=== PATIENT | male | born 1995 | race Caucasian/White ===

== ENCOUNTER 2024-02-14 01:34 | Emergency (ER) | payer OTHER, SELFPAY ==
[2024-02-14 01:32] VITALS: BP 152/92; PULSE 98; RESP 16; TEMP 36.3; O2SAT 100
[2024-02-14 01:47] LABS: Basophils Absolute Auto 0.1 K/mm3 (0.0-0.1); Basophils Percent Auto 1.1 % (0.2-1.2); Eosinophils Absolute Auto 0.2 K/mm3 (0-0.3); Eosinophils Percent Auto 3.6 % (0-4.4); Hematocrit 47.8 % (42.0-52.0); Hemoglobin 15.8 g/dL (14.0-18.0); Immature Granulocyte Absolute 0.01 K/mm3 (0.00-0.031); Immature Granulocyte Percent A 0.2 % (0-0.5); Lymphocytes Absolute Auto 2.15 K/mm3 (0.9-3.2); Lymphocytes Percent Auto 33.4 % (18.3-44.2); Mean Corpuscular HGB Conc 33.1 g/dl (32-36); Mean Corpuscular Hemoglobin 30.3 pg (26-34); Mean Corpuscular Volume 91.6 fl (80-100); Mean Platelet Volume 10.8 fl (7.4-10.4); Monocytes Absolute Auto 0.6 K/mm3 (0.1-0.6); Monocytes Percent Auto 9.2 % (2.6-8.5); Neutrophils Absolute Auto 3.4 K/mm3 (1.3-6.7); Neutrophils Percent Auto 52.5 % (45.5-73.1); Platelet Count Result 207 k/mm3 (150-375); Red Blood Count 5.22 M/mm3 (4.6-6.20); White Blood Count 6.4 K/mm3 (4.5-10.0)
--- NOTE | 2024-02-14 01:54 | PC.NURSE ---
EDP and charge account authorizer consulted about [facility] assessment.
[2024-02-14 01:58] LABS: Alanine Aminotransferase 38 U/L (6-50); Albumin Level 4.4 g/dL (3.5-5.1); Alkaline Phosphatase 109 U/L (38-126); Anion Gap 8 mmol/L (8-16); Aspartate Amino Transferase 32 U/L (17-59); Bilirubin,Total 0.4 mg/dL (0.2-1.3); Blood Urea Nitrogen 11 mg/dL (9-20); Calcium 8.5 mg/dL (8.4-10.2); Carbon Dioxide 27 mmol/L (22-30); Chloride 110 mmol/L (98-107); Estimated Glomerular Filt Rate > 60; Ethanol 236 mg/dL (<10); Glucose 88 mg/dL (65-110); Sodium 145 mmol/L (137-145)
[2024-02-14 03:18] LABS: Bacteria Urine None Seen /hpf; Non Pathogenic Casts 0-2; RBC Urine 0-2 /hpf (0-2); Squamous Epithelial Cell Urine None Seen /hpf (Few); WBC Urine 0-5 /hpf (0-3)
[2024-02-14 03:52] LABS: Appearance Urine Clear (Clear); Color Urine Yellow (Yellow); Glucose Urine UA Negative (Negative); Protein Urine Negative (Negative); pH Urine 5.5 (5.0-9.0)
[2024-02-14 03:53] LABS: Bilirubin Urine Negative (Negative); Blood Urine Negative (Negative); Ketones Urine Negative (Negative); Leukocyte Esterase Ur Negative LEU/UL (Negative); Nitrate Urine Negative (Negative); Urobilinogen Urine 0.2 mg/dL (<2.0)
[2024-02-14 03:55] LABS: Amphetamine Screen Urine Negative (Negative); Barbiturate Screen Urine Negative (Negative); Benzodiazepines Screen Urine Negative (Negative); Cannabinoid Screen Urine Negative (Negative); Cocaine Screen Urine Negative (Negative); Methadone Screen Urine Negative (Negative); Opiate Screen Urine Negative (Negative); Phencyclidine Screen Urine Negative (Negative)
--- NOTE | 2024-02-14 04:34 | ED.GENADULT ---
HPI - General Adult General Chief complaint: Psychiatric Symptoms <Vinicisu Mayers MD - Last Filed: 02/14/24 06:11> Stated complaint: si <Vinicius Mayers MD - Last Filed: 02/14/24 06:11> Time Seen by Provider: 02/14/24 02:24 <Vinicius Mayers MD - Last Filed: 02/14/24 06:11> History of Present Illness HPI narrative: Patient is a 29-year-old male who presents to the emergency department this morning due to alcohol intoxication and suicidal ideations. Patient admits that he does have a drinking problem and drinks almost daily. He also admits that he only becomes suicidal when he is drinking. He states that he understands had alcohol is a depressant and believes that it is the trigger for his suicidal thoughts and has been trying to cut down but has not been very successful. He currently denies any homicidal thoughts. Patient admits that he has seen a psychiatrist for that these thoughts. When asked how much he drank today, patient states a large amount of hard liquor. Patient does appear intoxicated. The remainder of history of present illness and review of systems is negative unless stated otherwise in HPI. <Vinicius Mayers MD - Last Filed: 02/14/24 06:11> Related Data Allergies/adverse reactions: Allergies Allergy/AdvReac Type Severity Reaction Status Date / Time promethazine [From Phenergan] Allergy Other Verified 02/14/24 01:39 <Vinicius Mayers MD - Last Filed: 02/14/24 06:11> Review of Systems Review of Systems: All systems are reviewed and are negative unless stated otherwise in the HPI. <Vinicius Mayers MD - Last Filed: 02/14/24 06:11> PMFSH Social History Social History: Social History Substance use type: does not use <Vinicius Mayers MD - Last Filed: 02/14/24 06:11> Comments Patient admits to a history of alcohol abuse drinking almost daily, denies any significant past medical or surgical history and denies any illicit drug use. <Vinicius Mayers MD - Last Filed: 02/14/24 06:11> Exam Narrative: General: Alert, awake, afebrile, intoxicated. HEENT: PERRL, no rhinorrhea, no post nasal drip, oropharynx clear. Neck: Trachea midline, no JVD, no lymphadenopathy. Cardiovascular: Regular rate and rhythm, no murmurs, rubs or gallops, no peripheral edema. Respiratory: Clear to auscultation bilaterally, no tachypnea, no wheezing, no rhonchi, no rubs, no respiratory distress. Abdomen: Soft, nontender, nondistended, no rebound, no guarding, no peritoneal signs. Musculoskeletal: No joint swelling or deformity, normal muscle tone. Skin: No rashes or petechia, no signs of infection. Psychiatric: Intoxicated, otherwise cooperative and following commands. Neurological: Alert and oriented to person, place, and time. Follows all commands. No focal deficits, speech is clear and fluent. <Vinicius Mayers MD - Last Filed: 02/14/24 06:11> Course Vital Signs Vital signs: Vital Signs Temperature 97.3 F L 02/14/24 01:32 Pulse Rate 98 02/14/24 01:32 Respiratory Rate 16 02/14/24 01:32 Blood Pressure 152/92 H 02/14/24 01:32 Pulse Oximetry 100 02/14/24 01:32 Oxygen Delivery Room Air 02/14/24 01:32 Temperature 97.5 F L 02/14/24 11:16 Pulse Rate 72 02/14/24 11:16 Respiratory Rate 17 02/14/24 11:16 Blood Pressure 154/94 H 02/14/24 11:16 Pulse Oximetry 98 02/14/24 11:16 Oxygen Delivery Room Air 02/14/24 01:32 <Vinicius Mayers MD - Last Filed: 02/14/24 06:11> Vital Signs Temperature 97.3 F L 02/14/24 01:32 Pulse Rate 98 02/14/24 01:32 Respiratory Rate 16 02/14/24 01:32 Blood Pressure 152/92 H 02/14/24 01:32 Pulse Oximetry 100 02/14/24 01:32 Oxygen Delivery Room Air 02/14/24 01:32 Temperature 97.5 F L 02/14/24 11:16 Pulse Rate 72 02/14/24 11:16 Respiratory Rate 17 02/14/24 11:16 Blood Pressure 154/94 H 02/14/24 11:16
[2024-02-14 05:09] LABS: Add Urine Microscopic? YES
[2024-02-14 06:08] LABS: Ethanol 141 mg/dL (<10)
[2024-02-14 07:25] VITALS: BP 141/99; PULSE 70; RESP 18; O2SAT 98
--- NOTE | 2024-02-14 07:41 | PC.NURSE ---
Precautionary breakfast tray ordered
[2024-02-14 08:58] LABS: Ethanol 75 mg/dL (<10)
[2024-02-14 10:15] LABS: SARS-CoV-2 RNA PCR Negative (Negative)
--- NOTE | 2024-02-14 10:58 | PC.NURSE ---
Crisis reps at bedside evaluating patient
--- NOTE | 2024-02-14 11:04 | PC.NURSE ---
Crisis representatives assessed patient and set up safety plan for d/c, made MD aware.
[2024-02-14 11:16] VITALS: BP 154/94; PULSE 72; RESP 17; TEMP 36.4; O2SAT 98
--- NOTE | 2024-02-14 13:14 | PCCCNOTE ---
CC called to the ED waiting room for a possible cab voucher home. Pt is trying to get his mother to pick him up, will let me know if he needs the voucher. Pt given food/drink while he waits. He verbalized no further needs at this time.
== END 2024-02-14 11:18 | disposition home or self-care (01) ==
PROVIDERS: Emergency Medicine; Emergency Provider Emergency Medicine
DX: F10.129 Alcohol abuse with intoxication, unspecified (principal); Y90.7 Blood alcohol level of 200-239 mg/100 ml; Z11.52 Encounter for screening for COVID-19
CPT/HCPCS: 36415; 80053; 80307; 81001; 84443; 85025; 87635; 99284

== ENCOUNTER 2024-02-14 16:21 | Emergency (ER) | payer OTHER, SELFPAY ==
--- NOTE | ~2024-02-14 | CT_ITS ---
EXAMINATION: CT brain wo con INDICATION: Head injury COMPARISON: None TECHNIQUE: Standard unenhanced head CT. The dose-length product (DLP) was 756.67 mGy-cm. The mA was a djusted according to patient size. Iterative reconstruction technique was employed. FINDINGS: No intracranial hemorrhage, acute infarction, or abnormal mass lesion. The ventricles are n ormal. No abnormal mass effect or midline shift. The galan-white matter differentiation is normal. The basal cisterns are patent. The orbits are normal. There is mild mucosal thickening of the paranasal sinuses. IMPRESSION: 1. No acute intracranial abnormality. Reviewed, dictated and finalized at location F.
[2024-02-14 16:30] VITALS: BP 171/86; PULSE 90; RESP 20; TEMP 36.6; O2SAT 99
--- NOTE | 2024-02-14 17:28 | ED.GENADULT ---
[facility] - General Adult General Chief complaint: Unspecified Stated complaint: wants cat scan Time Seen by Provider: 02/14/24 17:28 Source: patient Mode of arrival: ambulatory Limitations: no limitations History of Present Illness HPI narrative: This is a 29-year-old male who presents to the ED with chief complaint of head injury that occurred Last night. He was seen in this ED for alcoholic intoxication earlier and discharged in stable condition.. Reports that he slammed His head against the wall multiple times last night and is concerned that he may have caused some damage in his head. He is concerned because he did not get a head CT while he was here earlier. Denies LOC, numbness, weakness. Related Data Allergies Allergy/AdvReac Type Severity Reaction Status Date / Time promethazine [From Phenergan] Allergy Other Verified 02/14/24 01:39 Review of Systems Review of Systems: All systems as dictated in [facility] Social History Social History Substance use type: does not use Exam Narrative: GENERAL: Well-appearing, well-nourished, and in no acute distress. HEAD: Normocephalic, atraumatic. EYES: PERRLA and EOMI. ENT: Nares clear, no rhinorrhea or epistaxis. Mucous membranes moist. Oropharynx without tonsillar hypertrophy exudate or other lesions. NECK: Supple. No adenopathy or masses. CHEST: No respiratory distress. Clear to auscultation. No wheezes rales or rhonchi HEART: Regular rate and rhythm. No murmur heard. Normal peripheral pulses. ABDOMEN: Soft, nontender, nondistended, normal active bowel sounds. MSK: Normal range of motion. No edema. SKIN: Warm, dry, no rash. Mild erythema to central forehead. NEURO: Alert and oriented x3. No focal deficits. PSYCH: Normal mood and affect. Course Vital Signs Vital signs: Vital Signs Temperature 98 F 02/14/24 16:30 Pulse Rate 90 02/14/24 16:30 Respiratory Rate 20 02/14/24 16:30 Blood Pressure 171/86 H 02/14/24 16:30 Pulse Oximetry 99 02/14/24 16:30 Temperature 98 F 02/14/24 16:30 Pulse Rate 90 02/14/24 16:30 Respiratory Rate 20 02/14/24 16:30 Blood Pressure 171/86 H 02/14/24 16:30 Pulse Oximetry 99 02/14/24 16:30 Medical Decision Making MDM Narrative Medical decision making narrative: This is a 29-year-old male who presents to the ED for head injury that occurred last night. He is requesting a CT scan due to this head injury occurring while intoxicated last night. Vitals are normal. Neurologic exam fully intact. No LOC. no overt signs of trauma on exam. CT brain is normal. Pt will be discharged in stable condition. Return precautions given and supportive measures discussed. Pt is understanding and agreeable with plan for discharge and follow-up with PCP. Vital Signs Vital Signs: Vital Signs Temperature 98 F 02/14/24 16:30 Pulse Rate 90 02/14/24 16:30 Respiratory Rate 20 02/14/24 16:30 Blood Pressure 171/86 H 02/14/24 16:30 Pulse Oximetry 99 02/14/24 16:30 Temperature 98 F 02/14/24 16:30 Pulse Rate 90 02/14/24 16:30 Respiratory Rate 20 02/14/24 16:30 Blood Pressure 171/86 H 02/14/24 16:30 Pulse Oximetry 99 02/14/24 16:30 Discharge Plan Discharge Clinical Impression: Concussion Patient Disposition: Home, Self-Care Condition: Stable Instructions: Antibiotic Form Additional Instructions: Exam and imaging today are reassuring. Please suffered a minor concussion. This should resolve over the next couple of weeks. Tylenol and ibuprofen regularly for pain control. If you have any new or worsening symptoms please return to the ER for further evaluation. Follow-up/Referrals: UNKNOWN,DOCTOR [Non-Staff] - Time of Disposition: 17:33
== END 2024-02-14 17:39 | disposition home or self-care (01) ==
LOC: ANHED 17:39
PROVIDERS: Emergency Provider Physician Assistant; PCP Nurse Practitioner Adult Health
DX: S06.0X0A Concussion without loss of consciousness, initial encounter (principal); W22.09XA Striking against other stationary object, initial encounter
CPT/HCPCS: 36415; 70450; 80053; 80307; 81001; 84443; 85025; 87635; 99284

== ENCOUNTER 2024-03-13 05:38 | Emergency (ER) | payer OTHER, SELFPAY ==
--- NOTE | 2024-03-13 05:49 | ED.GENADULT ---
HPI - General Adult General Chief complaint: Psychiatric Symptoms <Jair Waddell MD - Last Filed: 03/13/24 06:35> Stated complaint: si <Jair Waddell MD - Last Filed: 03/13/24 06:35> Time Seen by Provider: 03/13/24 08:49 <Jair Waddell MD - Last Filed: 03/13/24 06:35> History of Present Illness HPI narrative: Patient is a 29-year-old gentleman who presents emergency department with chief complaint of suicidal ideation. The patient reports that he has prior history of alcoholism and sober for 26 days and started drinking this evening patient states he was having thoughts of hurting himself and was pounding his head against the wall the patient reports no loss of consciousness reports no other injuries patient has prior history of depression anxiety ADHD and OCD <Jair Waddell MD - Last Filed: 03/13/24 06:35> Related Data Allergies/adverse reactions: Allergies Allergy/AdvReac Type Severity Reaction Status Date / Time promethazine [From Phenergan] Allergy Other Verified 02/14/24 01:39 <Jair Waddell MD - Last Filed: 03/13/24 06:35> Review of Systems Review of Systems: A 10 system review of systems was completed on the patient and is negative except for what is stated in the HPI. Nursing and ancillary documentation was reviewed. <Jair Waddell MD - Last Filed: 03/13/24 06:35> PMFSH Social History Social History: Social History Substance use type: does not use <Jair Waddell MD - Last Filed: 03/13/24 06:35> Exam Narrative: GENERAL: Well-appearing, well-nourished, and in no acute distress. HEAD: Normocephalic, atraumatic. EYES: PERRLA and EOMI. ENT: Nares clear, no rhinorrhea or epistaxis. Mucous membranes moist. NECK: Supple. CHEST: Clear to auscultation. No respiratory distress. HEART: Regular rate and rhythm. No murmur heard. Normal peripheral pulses. ABDOMEN: Soft, nontender, nondistended, normal active bowel sounds. EXTREMITIES: Normal range of motion. No edema. SKIN: Warm, dry, no rash. NEURO: No focal deficits. Alert and oriented x3. PSYCH: Normal mood and affect. <Jair Waddell MD - Last Filed: 03/13/24 06:35> Course Vital Signs Vital signs: Vital Signs Temperature 98.2 F 03/13/24 05:54 Pulse Rate 81 03/13/24 05:54 Respiratory Rate 16 03/13/24 05:54 Blood Pressure 116/67 03/13/24 05:54 Pulse Oximetry 100 03/13/24 05:54 Temperature 98.2 F 03/13/24 05:54 Pulse Rate 81 03/13/24 05:54 Respiratory Rate 16 03/13/24 05:54 Blood Pressure 116/67 03/13/24 05:54 Pulse Oximetry 100 03/13/24 05:54 <Jair Waddell MD - Last Filed: 03/13/24 06:35> Vital Signs Temperature 98.2 F 03/13/24 05:54 Pulse Rate 81 03/13/24 05:54 Respiratory Rate 16 03/13/24 05:54 Blood Pressure 116/67 03/13/24 05:54 Pulse Oximetry 100 03/13/24 05:54 Temperature 98.2 F 03/13/24 05:54 Pulse Rate 81 03/13/24 05:54 Respiratory Rate 16 03/13/24 05:54 Blood Pressure 116/67 03/13/24 05:54 Pulse Oximetry 100 03/13/24 05:54 <Ayesha Cuevas III DO - Last Filed: 03/13/24 14:50> Medical Decision Making MDM Narrative Medical decision making narrative: Differential diagnosis includes depression, suicidal ideation, alcohol intoxication Laboratory studies were ordered for medical clearance currently they are still pending I will be signing out care to the ED provider pending results of test and final clearance for psychiatric evaluation <Jair Waddell MD - Last Filed: 03/13/24 06:35> Differential diagnosis includes depression, suicidal ideation, alcohol intoxication Laboratory studies were ordered for medical clearance currently they are still pending I will be signing out care to the ED provider pending results of test an
[2024-03-13 05:54] VITALS: BP 116/67; PULSE 81; RESP 16; TEMP 36.8; O2SAT 100
[2024-03-13 06:50] LABS: Basophils Absolute Auto 0.1 K/mm3 (0.0-0.1); Basophils Percent Auto 0.8 % (0.2-1.2); Eosinophils Absolute Auto 0.3 K/mm3 (0-0.3); Eosinophils Percent Auto 3.6 % (0-4.4); Hematocrit 50.1 % (42.0-52.0); Hemoglobin 16.2 g/dL (14.0-18.0); Immature Granulocyte Absolute 0.03 K/mm3 (0.00-0.031); Immature Granulocyte Percent A 0.4 % (0-0.5); Lymphocytes Absolute Auto 2.57 K/mm3 (0.9-3.2); Lymphocytes Percent Auto 32.7 % (18.3-44.2); Mean Corpuscular HGB Conc 32.3 g/dl (32-36); Mean Corpuscular Hemoglobin 29.7 pg (26-34); Mean Corpuscular Volume 91.8 fl (80-100); Mean Platelet Volume 11.3 fl (7.4-10.4); Monocytes Absolute Auto 0.8 K/mm3 (0.1-0.6); Monocytes Percent Auto 9.9 % (2.6-8.5); Neutrophils Absolute Auto 4.1 K/mm3 (1.3-6.7); Neutrophils Percent Auto 52.6 % (45.5-73.1); Platelet Count Result 243 k/mm3 (150-375); Red Blood Count 5.46 M/mm3 (4.6-6.20); White Blood Count 7.9 K/mm3 (4.5-10.0)
[2024-03-13 06:55] LABS: Appearance Urine Clear (Clear); Bilirubin Urine Negative (Negative); Blood Urine Negative (Negative); Color Urine Yellow (Yellow); Glucose Urine UA Negative (Negative); Ketones Urine Negative (Negative); Leukocyte Esterase Ur Negative LEU/UL (Negative); Nitrate Urine Negative (Negative); Protein Urine Negative (Negative); Specific Grav Ur 1.016 (1.001-1.035); Urobilinogen Urine 0.2 mg/dL (<2.0)
[2024-03-13 07:05] LABS: Alanine Aminotransferase 45 U/L (6-50); Albumin Level 4.7 g/dL (3.5-5.1); Alkaline Phosphatase 120 U/L (38-126); Anion Gap 11 mmol/L (4-12); Aspartate Amino Transferase 39 U/L (17-59); Bilirubin,Total 0.4 mg/dL (0.2-1.3); Blood Urea Nitrogen 12 mg/dL (9-20); Calcium 9.6 mg/dL (8.4-10.2); Carbon Dioxide 23 mmol/L (22-30); Chloride 108 mmol/L (98-107); Estimated CRCL calculation 169 ml/min; Estimated Glomerular Filt Rate > 60; Glucose 86 mg/dL (65-110); Potassium 4.2 mmol/L (3.4-5.0); Sodium 142 mmol/L (137-145)
[2024-03-13 07:11] LABS: Acetaminophen < 10 ug/mL (10-30); Ethanol 156 mg/dL (<10); Salicylate < 1.0 mg/dL (2-20)
[2024-03-13 07:15] LABS: Add Urine Microscopic? NO
[2024-03-13 07:21] LABS: Amphetamine Screen Urine Negative (Negative); Barbiturate Screen Urine Negative (Negative); Benzodiazepines Screen Urine Negative (Negative); Cannabinoid Screen Urine Negative (Negative); Cocaine Screen Urine Negative (Negative); Methadone Screen Urine Negative (Negative); Opiate Screen Urine Negative (Negative); Phencyclidine Screen Urine Negative (Negative)
[2024-03-13 07:27] LABS: Influenza A QL RT-PCR Negative (Negative); Influenza B QL RT-PCR Negative (Negative); RSV RNA, RT-PCR Negative (Negative); SARS-CoV-2 RNA PCR Negative (Negative)
[2024-03-13 12:50] LABS: Ethanol 45 mg/dL (<10)
[2024-03-13] MEDS: IBUPROFEN 400 MG TABLET 800 MG PO (13:58)
--- NOTE | 2024-03-13 14:04 | PC.NURSE ---
Crisis here to evaluate pt
[2024-03-13 14:20] VITALS: BP 136/86; PULSE 74; RESP 16; O2SAT 99
== END 2024-03-13 14:23 | disposition home or self-care (01) ==
PROVIDERS: Emergency Medicine; Emergency Provider Emergency Medicine; PCP Nurse Practitioner Adult Health
DX: F10.129 Alcohol abuse with intoxication, unspecified (principal); Y90.2 Blood alcohol level of 40-59 mg/100 ml; F32.A Depression, unspecified; Z20.822 Contact with and (suspected) exposure to COVID-19
CPT/HCPCS: 36415; 80053; 80307; 81003; 84443; 85025; 87637; 99284; A9270

== ENCOUNTER 2024-03-19 20:47 | Emergency (ER) | payer OTHER, SELFPAY ==
[2024-03-19 20:53] VITALS: BP 130/76; PULSE 115; RESP 20; TEMP 37; O2SAT 97
[2024-03-19 21:32] LABS: Basophils Absolute Auto 0.1 K/mm3 (0.0-0.1); Eosinophils Absolute Auto 0.2 K/mm3 (0-0.3); Hematocrit 46.3 % (42.0-52.0); Hemoglobin 15.5 g/dL (14.0-18.0); Immature Granulocyte Absolute 0.01 K/mm3 (0.00-0.031); Immature Granulocyte Percent A 0.1 % (0-0.5); Lymphocytes Absolute Auto 2.07 K/mm3 (0.9-3.2); Lymphocytes Percent Auto 28.6 % (18.3-44.2); Mean Corpuscular HGB Conc 33.5 g/dl (32-36); Mean Corpuscular Hemoglobin 30.2 pg (26-34); Mean Corpuscular Volume 90.1 fl (80-100); Mean Platelet Volume 11.1 fl (7.4-10.4); Monocytes Absolute Auto 0.6 K/mm3 (0.1-0.6); Monocytes Percent Auto 7.9 % (2.6-8.5); Neutrophils Absolute Auto 4.3 K/mm3 (1.3-6.7); Neutrophils Percent Auto 59.4 % (45.5-73.1); Platelet Count Result 228 k/mm3 (150-375); Red Blood Count 5.14 M/mm3 (4.6-6.20); Red Cell Distribution Width 13.1 % (11.5-14.5); White Blood Count 7.2 K/mm3 (4.5-10.0)
[2024-03-19 21:34] LABS: Appearance Urine Clear (Clear); Bilirubin Urine Negative (Negative); Blood Urine Negative (Negative); Color Urine Yellow (Yellow); Glucose Urine UA Negative (Negative); Ketones Urine Negative (Negative); Leukocyte Esterase Ur Negative LEU/UL (Negative); Nitrate Urine Negative (Negative); Protein Urine Negative (Negative); Specific Grav Ur 1.011 (1.001-1.035); Urobilinogen Urine 0.2 mg/dL (<2.0); pH Urine 5.5 (5.0-9.0)
[2024-03-19 21:36] LABS: Add Urine Microscopic? NO
[2024-03-19 21:44] LABS: Alanine Aminotransferase 32 U/L (6-50); Albumin Level 4.6 g/dL (3.5-5.1); Alkaline Phosphatase 107 U/L (38-126); Anion Gap 12 mmol/L (4-12); Aspartate Amino Transferase 30 U/L (17-59); Bilirubin,Total 0.5 mg/dL (0.2-1.3); Blood Urea Nitrogen 14 mg/dL (9-20); Calcium 9.2 mg/dL (8.4-10.2); Carbon Dioxide 21 mmol/L (22-30); Chloride 111 mmol/L (98-107); Estimated CRCL calculation 147 ml/min; Estimated Glomerular Filt Rate > 60; Glucose 112 mg/dL (65-110); Potassium 4.3 mmol/L (3.4-5.0); Sodium 144 mmol/L (137-145)
--- NOTE | 2024-03-19 21:46 | ED.GENADULT ---
HPI - General Adult General Chief complaint: Psychiatric Symptoms Stated complaint: DRANK ETOH; BECAME SUICIDAL Time Seen by Provider: 03/19/24 21:08 History of Present Illness HPI narrative: This a 29-year-old male presenting for suicidal ideation. Patient drink a large amount of vodka today. After He was drunk he called the suicide hotline and told them that he was thinking of hurting himself. patient says that he will put a garbage bag over his head and spray body spray into it to suffocate himself. he denies homicidal ideation auditory visual hallucinations. Patient does not have access to a firearm. Patient has no physical complaints at this time Related Data Allergies Allergy/AdvReac Type Severity Reaction Status Date / Time promethazine [From Phenergan] Allergy Other Verified 02/14/24 01:39 [facility] Social History Social History Substance use type: does not use Exam Narrative: APPEARANCE: No apparent distress. Head: atraumatic. EYES: EOMI, NOSE: Atraumatic NECK: Trachea midline RESPIRATORY: No increased rate of breathing CARDIOVASCULAR: RRR, ABDOMINAL: Non-distended MUSCULOSKELETAl: No obvious deformities NEURO: Alert. Moving 4/4 extremities SKIN:: Warm, dry. Normal color PSYCHIATRIC: Normal affect Course Vital Signs Vital signs: Vital Signs Temperature 98.6 F 03/19/24 20:53 Pulse Rate 115 H 03/19/24 20:53 Respiratory Rate 20 03/19/24 20:53 Blood Pressure 130/76 03/19/24 20:53 Pulse Oximetry 97 03/19/24 20:53 Oxygen Delivery Room Air 03/19/24 20:53 Temperature 98.6 F 03/19/24 20:53 Pulse Rate 82 03/20/24 01:58 Respiratory Rate 18 03/20/24 01:58 Blood Pressure 139/87 03/20/24 01:58 Pulse Oximetry 98 03/20/24 01:58 Oxygen Delivery Room Air 03/19/24 20:53 Medical Decision Making MDM Narrative Medical decision making narrative: -Course: 29-year-old male presenting intoxicated with suicidal ideation. Monitored until sober. medically cleared. Cleared by the crisis team. Safety plan. Discharge -DDX includes but is not limited to: alcohol intoxication, suicidal ideation, depression -Co-morbidities complicating care: depression, alcohol abuse -Independent interpretation of studies: labs reviewed -Discussion of Management/Consultants:Crisis team. Vital Signs Vital Signs: Vital Signs Temperature 98.6 F 03/19/24 20:53 Pulse Rate 115 H 03/19/24 20:53 Respiratory Rate 20 03/19/24 20:53 Blood Pressure 130/76 03/19/24 20:53 Pulse Oximetry 97 03/19/24 20:53 Oxygen Delivery Room Air 03/19/24 20:53 Temperature 98.6 F 03/19/24 20:53 Pulse Rate 82 03/20/24 01:58 Respiratory Rate 18 03/20/24 01:58 Blood Pressure 139/87 03/20/24 01:58 Pulse Oximetry 98 03/20/24 01:58 Oxygen Delivery Room Air 03/19/24 20:53 Lab Data 03/19/24 21:25 03/19/24 21:25 Labs: Lab Results 03/19/24 03/19/24 03/20/24 Range/Units 21:25 22:07 00:25 WBC 7.2 (4.5-10.0) K/mm3 RBC 5.14 (4.6-6.20) M/mm3 Hgb 15.5 (14.0-18.0) g/dL Hct 46.3 (42.0-52.0) % MCV 90.1 (80-100) fl MCH 30.2 (26-34) pg MCHC 33.5 (32-36) g/dl RDW 13.1 (11.5-14.5) % Plt Count 228 (150-375) k/mm3 MPV 11.1 H (7.4-10.4) fl Immature Gran % (Auto) 0.1 (0-0.5) % Neut % (Auto) 59.4 (45.5-73.1) % Lymph % (Auto) 28.6 (18.3-44.2) % Caroline % (Auto) 7.9 (2.6-8.5) % Eos % (Auto) 3.0 (0-4.4) % Baso % (Auto) 1.0 (0.2-1.2) % Lymph # (Auto) 2.07 (0.9-3.2) K/mm3 Caroline # (Auto) 0.6 (0.1-0.6) K/mm3 Eos # (Auto) 0.2 (0-0.3) K/mm3 Baso # (Auto) 0.1 (0.0-0.1) K/mm3 Abs Immat Gran (auto) 0.01 (0.00-0.031) K/mm3 Absolute Neuts (auto) 4.3 (1.3-6.7) K/mm3 Absolute Nucleated RBC 0.000 (0.0-0.012) K/mm3 Nucleated RBC % 0.0 (0.0-0.2) % Sodium 144 (137-145) mmol/L Potassium 4.3 (3.4
[2024-03-19 21:50] LABS: Amphetamine Screen Urine Negative (Negative); Barbiturate Screen Urine Negative (Negative); Benzodiazepines Screen Urine Negative (Negative); Cannabinoid Screen Urine Positive (Negative); Cocaine Screen Urine Negative (Negative); Methadone Screen Urine Negative (Negative); Opiate Screen Urine Negative (Negative); Phencyclidine Screen Urine Negative (Negative)
[2024-03-19 22:03] LABS: Acetaminophen < 10 ug/mL (10-30); Ethanol 163 mg/dL (<10); Salicylate < 1.0 mg/dL (2-20)
[2024-03-19 22:47] LABS: Influenza A QL RT-PCR Negative (Negative); Influenza B QL RT-PCR Negative (Negative); RSV RNA, RT-PCR Negative (Negative); SARS-CoV-2 RNA PCR Negative (Negative)
[2024-03-19 23:42] VITALS: BP 150/74; PULSE 99; RESP 18; O2SAT 96
[2024-03-20 00:53] LABS: Ethanol 95 mg/dL (<10)
[2024-03-20 01:58] VITALS: BP 139/87; PULSE 82; RESP 18; O2SAT 98
[2024-03-20] MEDS: IBUPROFEN 400 MG TABLET 800 MG PO (04:39)
== END 2024-03-20 04:40 | disposition home or self-care (01) ==
PROVIDERS: Emergency Provider Emergency Medicine; PCP Nurse Practitioner Adult Health
DX: F32.A Depression, unspecified (principal); F10.20 Alcohol dependence, uncomplicated; Y90.6 Blood alcohol level of 120-199 mg/100 ml; Z11.52 Encounter for screening for COVID-19
CPT/HCPCS: 36415; 80053; 80307; 81003; 84443; 85025; 87637; 99284; A9270

== ENCOUNTER 2024-05-29 01:12 | Emergency (ER) | payer OTHER, SELFPAY ==
[2024-05-29 01:14] VITALS: BP 136/82; PULSE 105; RESP 15; TEMP 36.6; O2SAT 100
[2024-05-29 02:04] LABS: Basophils Absolute Auto 0.1 K/mm3 (0.0-0.1); Basophils Percent Auto 1.2 % (0.2-1.2); Eosinophils Absolute Auto 0.4 K/mm3 (0-0.3); Eosinophils Percent Auto 4.6 % (0-4.4); Hematocrit 44.8 % (42.0-52.0); Immature Granulocyte Absolute 0.04 K/mm3 (0.00-0.031); Immature Granulocyte Percent A 0.4 % (0-0.5); Lymphocytes Absolute Auto 2.57 K/mm3 (0.9-3.2); Lymphocytes Percent Auto 28.6 % (18.3-44.2); Mean Corpuscular HGB Conc 33.5 g/dl (32-36); Mean Corpuscular Hemoglobin 29.5 pg (26-34); Mean Platelet Volume 11.1 fl (7.4-10.4); Monocytes Absolute Auto 0.9 K/mm3 (0.1-0.6); Monocytes Percent Auto 9.5 % (2.6-8.5); Neutrophils Percent Auto 55.7 % (45.5-73.1); Platelet Count Result 234 k/mm3 (150-375); Red Blood Count 5.09 M/mm3 (4.6-6.20); Red Cell Distribution Width 13.1 % (11.5-14.5)
[2024-05-29 02:05] LABS: Appearance Urine Clear (Clear); Bilirubin Urine Negative (Negative); Blood Urine Negative (Negative); Color Urine Yellow (Yellow); Glucose Urine UA Negative (Negative); Ketones Urine Negative (Negative); Leukocyte Esterase Ur Negative LEU/UL (Negative); Nitrate Urine Negative (Negative); Protein Urine Negative (Negative); Specific Grav Ur 1.006 (1.001-1.035); Urobilinogen Urine 0.2 mg/dL (<2.0); pH Urine 5.5 (5.0-9.0)
--- NOTE | 2024-05-29 02:14 | ED.PSYCH ---
HPI - Psych General Chief Complaint: Psychiatric Symptoms Stated Complaint: SI Time Seen by Provider: 05/29/24 01:19 History of Present Illness HPI Narrative: Patient is a 29-year-old male with history of depression, alcohol use disorder here intoxicated and depressed. He states that tonight he drink for the 1st time in a couple of months. He then was having thoughts of self-harm, called the suicide hotline and states that he told them too much . EMS was called and he was transported into the ER for further evaluation. He states that he denies attempt to harm himself and does not plan to harm himself. He repeatedly says addiction sucks. He notes that he would not do anything to himself because of his mother and that should be very upset that he was here in the emergency department today. He denies any cough, congestion, fever, chills. His only prior withdrawal symptoms have been headaches in the past, no history of withdrawal seizures. Related Data Home Medications Medication Instructions Recorded Confirmed acetylcysteine 600 mg tablet, 1,200 mg PO .qd 03/20/24 immediate and extended release folic acid 1 mg tablet 1 mg PO DAILY 03/20/24 thiamine HCl (vitamin B1) 100 mg 100 mg PO DAILY 03/20/24 tablet trazodone 50 mg tablet 50 mg PO QHS PRN 03/20/24 Allergies Allergy/AdvReac Type Severity Reaction Status Date / Time promethazine [From Phenergan] Allergy Unknown Hives Verified 03/20/24 07:44 Review of Systems Review of Systems: All systems reviewed & are unremarkable except as noted in HPI and below PMFSH Past Medical History Medical History (Updated 05/29/24 @ 07:46 by Laura Bianchi MD) Anxiety Chronic GERD Family History Family History (Updated 01/17/24 @ 07:22 by Barbara Palencia MA) Mother Diabetes mellitus Hypertension Cerebrovascular accident Depression Social History Social History (Updated 01/17/24 @ 07:29 by Barbara Palencia MA) Smoking status: Never smoker Alcohol intake: current Alcohol use details: Every other day Substance use: never Lack of Transportation: No Lack of Food: Sometimes True Current Housing: I Have Housing Concerned About Future Housing: No Difficulty Paying Gas/Electric Bills: No Difficulty Paying for Meds: No Currently Unemployed: No Education: High School Diploma/GED Difficulty w/ Childcare or Family Care: No Living arrangements: alone Occupation/Education: occupation 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 HEAD: Normocephalic, atraumatic. EYES: PERRLA and EOMI. ENT: Nares clear. Mucous membranes moist. NECK: Supple. CHEST: Clear to auscultation. No respiratory distress. HEART: Regular rate and rhythm. Normal peripheral pulses. ABDOMEN: Soft, nontender, nondistended. EXTREMITIES: Normal range of motion. No edema. SKIN: Warm, dry, no rash. NEURO: No focal deficits. Alert and oriented x3. PSYCH: Normal mood and affect. Course Course Emergency Course: Chart review performed, patient here with alcohol intoxication, on trip, she trying, endorsed depression, denies suicidal ideation however does report that he called the suicide hotline because he wanted to . Triage vitals show tachycardia, otherwise within normal limits. PCP note from 03/20/2024 reviewed, he has documented history of EtOH consumption and self-harm all intoxicated. He had reportedly been planning to call [facility] for voluntary admission at that time. Patient seen evaluated, nontoxic appearing. He currently is denying suicidal ideation but does endorse that he has struggled with addiction and called the suicide hotline tonight tell them he no longer wanted to be alive. He does endorse his last drink was within the last
[2024-05-29 02:18] LABS: Alanine Aminotransferase 20 U/L (6-50); Albumin Level 4.3 g/dL (3.5-5.1); Alkaline Phosphatase 143 U/L (38-126); Anion Gap 12 mmol/L (4-12); Aspartate Amino Transferase 24 U/L (17-59); Bilirubin,Total 0.4 mg/dL (0.2-1.3); Blood Urea Nitrogen 15 mg/dL (9-20); Calcium 8.6 mg/dL (8.4-10.2); Carbon Dioxide 20 mmol/L (22-30); Chloride 110 mmol/L (98-107); Estimated CRCL calculation 183 ml/min; Estimated Glomerular Filt Rate > 60; Glucose 104 mg/dL (65-110); Potassium 4.1 mmol/L (3.4-5.0); Sodium 142 mmol/L (137-145)
[2024-05-29 02:19] LABS: Ethanol 221 mg/dL (<10)
[2024-05-29 02:21] LABS: Amphetamine Screen Urine Negative (Negative); Barbiturate Screen Urine Negative (Negative); Benzodiazepines Screen Urine Negative (Negative); Cannabinoid Screen Urine Negative (Negative); Cocaine Screen Urine Negative (Negative); Methadone Screen Urine Negative (Negative); Opiate Screen Urine Negative (Negative); Phencyclidine Screen Urine Negative (Negative)
[2024-05-29 02:38] LABS: SARS-CoV-2 RNA PCR Negative (Negative)
[2024-05-29 02:38] LABS: Add Urine Microscopic? NO
[2024-05-29 02:49] LABS: Thyroid Stimulating Hormone Reflex 0.974 uIU/mL (0.465-4.68)
--- NOTE | 2024-05-29 06:46 | PC.NURSE ---
Patient awake and states he no longer has thoughts of harming himself. Patient states he does not want evaluation from social workers and wants to just go home . Patient Ethanol level drawn and patient informed to wait for results. Patient cooperative and returns to sleep.
[2024-05-29 07:01] LABS: Ethanol 163 mg/dL (<10)
== END 2024-05-29 07:59 | disposition home or self-care (01) ==
PROVIDERS: Emergency Provider Student in an Organized Health Care Education/Training Program; PCP Nurse Practitioner Adult Health
DX: F32.A Depression, unspecified (principal); F10.920 Alcohol use, unspecified with intoxication, uncomplicated; Z20.822 Contact with and (suspected) exposure to COVID-19; F41.9 Anxiety disorder, unspecified; K21.9 Gastro-esophageal reflux disease without esophagitis
CPT/HCPCS: 36415; 80053; 80307; 81003; 84443; 85025; 87635; 99283